=== PATIENT | female | born 1955 | race Caucasian/White ===

== ENCOUNTER 2017-12-28 10:44 | Emergency (ER) | payer BC ==
[~2017-12-28] VITALS: Ht 160 cm; Wt 66.5 kg
[2017-12-28] MEDS ORDERED: ATORVASTATIN CA20 MG PO (11:37)
[2017-12-28] MEDS ORDERED: ASPIR 8181 M1 PO (11:37)
[2017-12-28 11:51] LABS: HEMATOCRIT 44.6 % (36.0-46.0); MCH 31.1 PG (29.0-34.0); MCHC 33.6 G/DL (30.0-36.0); MCV 92.3 FL (83-99); PLATELET COUNT 312 K/uL (156-360); RBC DIS.WIDTH-CV 12.5 % (11.8-14.6); RBC DIS.WIDTH-SD 42.7 % (39-53); RED BLOOD COUNT 4.83 M/uL (3.80-5.20); WHITE BLOOD COUNT 9.2 K/uL (4.1-10.2)
[2017-12-28 12:03] LABS: CHLORIDE 108 mEq/L (99-109); SODIUM 142 mEq/L (136-147)
[2017-12-28 12:05] LABS: GLUCOSE 99 mg/dL (70-99)
[2017-12-28 12:09] LABS: CREATININE 0.9 mg/dL (0.6-1.3); GFR ESTIMATE (CALCULATED) > 59 mL/min/
[2017-12-28 12:10] LABS: UREA NITROGEN (BUN) 11 mg/dL (9-23)
[2017-12-28 12:14] LABS: TROP-I INTERPRETATION NEGATIVE; TROPONIN-I 0.05 ng/mL (0.0-0.30)
[2017-12-28 13:09] VITALS: BP 119/73
== END 2017-12-28 13:15 | disposition home or self-care (01) ==
LOC: EME 10:44
PROVIDERS: Emergency Medicine Emergency Medical Services
DX: R55 Syncope and collapse (principal); E78.5 Hyperlipidemia, unspecified
CPT/HCPCS: 80048; 84484; 85027; 93005; 99281; 99284